=== PATIENT | male | born 1935 | race Caucasian/White ===

== ENCOUNTER → 2016-11-21 | Outpatient (CLI) | payer MEDICARE ==
[2016-11-21 09:41] LABS: ALT 25 U/L (21-72); AST 18 U/L (17-59); Alkaline Phosphatase 77 U/L (38-126); Anion Gap 10 mmol/L; Blood Urea Nitrogen 15 mg/dL (9-20); Calcium 9.2 mg/dL (8.4-10.2); Carbon Dioxide 24 mmol/L (22-30); Chloride 107 mmol/L (98-107); Cholesterol 137 mg/dL (<200); Glucose 135 mg/dL (74-99); HDL Cholesterol 27 mg/dL (40-60); Non-African American GFR(MDRD) >60 (>60 ml/min/1.73 sqM); Sodium 141 mmol/L (137-145); Total Bilirubin 1.5 mg/dL (0.2-1.3); Total Protein 6.6 g/dL (6.3-8.2); Triglycerides 128 mg/dL (<150)
[2016-11-21 12:56] LABS: Hemoglobin A1C 6.5 % (4.2-6.1)
== END ==
LOC: LABWHC1 08:49
PROVIDERS: ATTEND Internal Medicine
DX: E11.9 Type 2 diabetes mellitus without complications (principal); E78.5 Hyperlipidemia, unspecified
CPT/HCPCS: 36415; 80053; 80061; 83036

== ENCOUNTER → 2016-12-20 | Outpatient (CLI) | payer MEDICARE ==
[2016-12-20 12:59] LABS: ALT 23 U/L (21-72); AST 18 U/L (17-59); Alkaline Phosphatase 81 U/L (38-126); Anion Gap 9 mmol/L; Blood Urea Nitrogen 17 mg/dL (9-20); Calcium 9.3 mg/dL (8.4-10.2); Carbon Dioxide 27 mmol/L (22-30); Chloride 106 mmol/L (98-107); Cholesterol 143 mg/dL (<200); Glucose 108 mg/dL (74-99); HDL Cholesterol 28 mg/dL (40-60); Non-African American GFR(MDRD) >60 (>60 ml/min/1.73 sqM); Sodium 142 mmol/L (137-145); Total Bilirubin 1.4 mg/dL (0.2-1.3); Triglycerides 121 mg/dL (<150)
== END | disposition home or self-care (01) ==
LOC: LABWHC1 11:20
PROVIDERS: ATTEND Internal Medicine Interventional Cardiology
DX: E78.2 Mixed hyperlipidemia (principal)
CPT/HCPCS: 36415; 80053; 80061

== ENCOUNTER → 2017-03-18 | Outpatient (CLI) | payer MEDICARE ==
--- NOTE | 2017-03-18 12:24 | CT ---
EXAMINATION TYPE: CT brain wo con DATE OF EXAM: 03/18/2017 COMPARISON: CT brain with contrast dated 12/30/2013. HISTORY: Patient poor historian. Patient appears to have memory lapses. Alzheimers. CT DLP: 1103 mGycm. Automated Exposure Control for Dose Reduction was Utilized. TECHNIQUE: CT scan of the head is performed without contrast. FINDINGS: There is no acute intracranial hemorrhage, mass effect, or midline shift identified. Old lacunar injury is seen of the lewis radiata within the frontal lobe on the left. There is diffuse sy mmetric prominence of the ventricular system and peripheral sulci corresponding to age-related atroph y and accentuated by the history of Alzheimer's dementia. Scattered areas of hypoattenuation are seen within the periventricular and subcortical white matter relating to chronic microangiopathy. 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 The globes are intact and there is polypoid muco steve thickening of the posterior ethmoid and sphenoid sinuses, mild in degree and partially visualized . IMPRESSION: 1. No acute intracranial hemorrhage, mass effect, or midline shift is seen. 2. Symmetric atrophy, partially age related and partially related to the patient's history of Alzheim er's disease. 3. Partially visualized mild polypoid mucosal thickening of the sphenoid and ethmoid sinuses. 4. Nonspecific white matter changes, likely on the basis of chronic microangiopathy.
== END | disposition home or self-care (01) ==
LOC: RADCTMAIN 11:49
PROVIDERS: ATTEND Psychiatry & Neurology Neurology
DX: G30.9 Alzheimer's disease, unspecified (principal); F02.80 Dementia in other diseases classified elsewhere, unspecified severity, without behavioral disturbance, psychotic disturbance, mood disturbance, and anxiety; G31.9 Degenerative disease of nervous system, unspecified; R90.82 White matter disease, unspecified
CPT/HCPCS: 70450

== ENCOUNTER 2018-12-10 18:43 | Emergency (ER) | payer MEDICARE ==
--- NOTE | 2018-12-10 20:05 | ED ---
General Adult HPI - General Chief complaint: Altered Mental Status Stated complaint: Confused Time Seen by Provider: 12/10/18 19:52 Source: family Mode of arrival: ambulatory Limitations: no limitations - History of Present Illness Initial comments: Dictation was produced using [employer] dictation software. please excuse any grammatical, word or spelling errors. Chief Complaint: 83-year-old male past medical history dementia presents with abnormal behavior. History of Present Illness: 83-year-old male. He has multiple comorbidities. Patient is a history of dementia. He is brought in today for 2 weeks of bizarre behavior. Family specifically reports that patient has been wearing 3 shirts at a time and shortness over his pants. Patient does not usually exam dissected behavior. Has a history of dementia. Patient does have established care with neurologist Dr. Marcial. She instructed to bring patient to the emergency department for concerns of possible delirium. Patient otherwise has no complaints at this time. Family reports the patient is otherwise well-appearing and has had no complaints. Patient has not been compliant with his dementia medication. He was seen flushing his medications down the toilet. The ROS documented in this emergency department record has been reviewed and confirmed by me. Those systems with pertinent positive or negative responses have been documented in the HPI. All other systems are other negative and/or noncontributory. PHYSICAL EXAM: General Impression: Alert and oriented x2/4, not in acute distress HEENT: Normocephalic atraumatic, extra-ocular movements intact, pupils equal and reactive to light bilaterally, mucous membranes moist. Cardiovascular: Heart regular rate and rhythm, S1&S2 audible, no murmurs, rubs or gallops Chest: Lungs clear to auscultation bilaterally, no rhonchi, no wheeze, no rales Abdomen: Bowel sounds present, abdomen soft, non-tender, non-distended, no organomegaly Musculoskeletal: Pulses present and equal in all extremities, no peripheral edema Motor: no focal deficits noted Neurological: CN II-XII grossly intact, no focal motor or sensory deficits noted, no rigidity no clonus Skin: Intact with no visualized rashes ED course: 83-year-old pleasant male presents with abnormal behavior. He has a history of dementia. Vital signs upon arrival are within acceptable limits. Laboratory evaluation obtained. CBC unremarkable. Metabolic panel is unremarkable. Chest x-ray shows no acute processes. CT of the brain shows bas al ganglia bleed with extension into the intraventricular space. Discussed CT findings with radiologist. Patient to be transferred to [facility] for further intervention. Discussed patient case with Dr. Castano. Who is willing to accept the patient. He does request that we touch base with no endovascular for possible intervention. Patient's blood pressure was slightly elevated 154/93. Skin tone milligrams of labetalol. Medications were reviewed. Patient is not on any anticoagulation medications. - Related Data Home Medications Medication Instructions Recorded Confirmed Aspirin [[place] Aspirin EC] 81 mg PO DAILY 12/10/18 12/10/18 Donepezil HCl [Aricept] 10 mg PO DAILY 12/10/18 12/10/18 Latanoprost/Pf [Latanoprost 0.005% 1 drop LEFT EYE HS 12/10/18 12/10/18 Eye Drop] Losartan [Cozaar] 50 mg PO DAILY 12/10/18 12/10/18 Allergies Allergy/AdvReac Type Severity Reaction Status Date / Time lansoprazole [From Prevacid] Allergy Rash/Hives Verified 12/10/18 20:08 Review of Systems ROS Statement: Those systems with pertinent positive or pertinent negative responses have been documented in the HPI. ROS Other: All systems not noted in ROS Statement are negative. Past Medical History Past Medical History: Hyperlipidemia, Hypertension Additional Past Medical History / Comment(s): SEE DR CHOW'S HISTORY AND PHYSICAL History of Any Multi-Drug Resistant Organisms: None Reported Past Surgical History: No Surgical Hx Reported, Appendectomy, Heart Catheterization, Hernia Repair Additional Past Surgical History / Comment(s): pacemaker Past Anesthesia/Blood Transfusion Reactions: No Reported Reaction Type of Cardiac Device: Permanent Pacemaker Device Placement Date:: 12-17-2004 Past Psychological History: No Psychological Hx Reported Smoking Status: Former smoker General Exam Limitations: no limitations Course Vital Signs 12/10/18 12/10/18 19:17 21:04 Temperature 98.3 F 97.6 F Pulse Rate 69 73 Respiratory 20 16 Rate Blood Pressure 147/78 154/93 O2 Sat by Pulse 97 95 Oximetry Medical Decision Making - Lab Data Result diagrams: 12/10/18 21:00 12/10/18 21:00 Lab Results 12/10/18 12/10/18 12/10/18 Range/Units 21:00 21:00 21:00 WBC 6.7 (3.8-10.6) k/uL RBC 4.54 (4.30-5.90) m/uL Hgb 13.2 (13.0-17.5) gm/dL Hct 39.6 (39.0-53.0) % MCV 87.4 (80.0-100.0) fL MCH 29.1 (25.0-35.0) pg MCHC 33.3 (31.0-37.0) g/dL RDW 12.4 (11.5-15.5) % Plt Count 215 (150-450) k/uL Neutrophils % 65 % Lymphocytes % 20 % Monocytes % 9 % Eosinophils % 2 % Basophils % 0 % Neutrophils # 4.4 (1.3-7.7) k/uL Lymphocytes # 1.3 (1.0-4.8) k/uL Monocytes # 0.6 (0-1.0) k/uL Eosinophils # 0.2 (0-0.7) k/uL Basophils # 0.0 (0-0.2) k/uL Sodium 141 (137-145) mmol/L Potassium 4.0 (3.5-5.1) mmol/L Chloride 107 (98-107) mmol/L Carbon Dioxide 25 (22-30) mmol/L Anion Gap 9 mmol/L BUN 26 H (9-20) mg/dL Creatinine 1.15 (0.66-1.25) mg/dL Est GFR (CKD-EPI)AfAm 69 (>60 ml/min/1.73 sqM) Est GFR (CKD-EPI)NonAf 60 (>60 ml/min/1.73 sqM) Glucose 114 H (74-99) mg/dL Calcium 9.5 (8.4-10.2) mg/dL Magnesium 2.0 (1.6-2.3) mg/dL Total Bilirubin 1.4 H (0.2-1.3) mg/dL AST 15 L (17-59) U/L ALT 22 (21-72) U/L Alkaline Phosphatase 72 (38-126) U/L Ammonia <9 (<30) umol/L Total Protein 6.8 (6.3-8.2) g/dL Albumin 3.9 (3.5-5.0) g/dL Disposition Clinical Impression: Intracranial bleed Disposition: OTHER INSTITUTION NOT DEFINED Condition: Critical Referrals: Cameron Soto MD [Primary Care Provider] - 1-2 days Time of Disposition: 21:39 - Out of Hospital Transfer - Req. Specs Out of Hospital Transfer - Requested Specifics: Other Emergency Center (formerly [facility])
[2018-12-10 21:05] VITALS: RESP 16; TEMP 97.6
[2018-12-10 21:15] LABS: Basophils % (A) 0 %; Eosinophils # (A) 0.2 k/uL (0-0.7); Eosinophils % (A) 2 %; HCT 39.6 % (39.0-53.0); HGB 13.2 gm/dL (13.0-17.5); Lymphocytes # (A) 1.3 k/uL (1.0-4.8); Lymphocytes % (A) 20 %; MCH 29.1 pg (25.0-35.0); MCHC 33.3 g/dL (31.0-37.0); MCV 87.4 fL (80.0-100.0); Mean Platelet Volume 6.9; Monocytes # (A) 0.6 k/uL (0-1.0); Monocytes % (A) 9 %; Neutrophils # (A) 4.4 k/uL (1.3-7.7); Neutrophils % (A) 65 %; Platelet Count 215 k/uL (150-450); RBC 4.54 m/uL (4.30-5.90); RDW 12.4 % (11.5-15.5); WBC 6.7 k/uL (3.8-10.6)
[2018-12-10 21:24] LABS: Albumin 3.9 g/dL (3.5-5.0); Calcium 9.5 mg/dL (8.4-10.2); Total Bilirubin 1.4 mg/dL (0.2-1.3); Total Protein 6.8 g/dL (6.3-8.2)
[2018-12-10] MEDS ORDERED: LABETALOL SYRINGE 5 MG/ML IVP STA (21:27)
--- NOTE | 2018-12-10 21:34 | XR ---
EXAMINATION TYPE: XR chest 2V DATE OF EXAM: 12/10/2018 COMPARISON: 12/30/2013 HISTORY: Chest pain TECHNIQUE: Frontal and lateral views of the chest are obtained. FINDINGS: There is no heart failure nor confluent pneumonic infiltrate. Thoracic aorta is atheromato us. There is a left axillary pacemaker. IMPRESSION: No active cardiopulmonary disease. There is clearing of small subsegmental atelectasis l eft lung base compared to old exam.
--- NOTE | 2018-12-10 21:40 | CT ---
EXAMINATION TYPE: CT brain wo con DATE OF EXAM: 12/10/2018 COMPARISON: 12/30/2013 HISTORY: Altered mental status. CT DLP: 1126.4 mGycm Automated exposure control for dose reduction was used. FINDINGS: There is cerebral cortical atrophy. There is 3 x 1.5 cm area of hypoattenuation in the left lateral v entricle frontal horn. This is consistent with acute intraventricular hemorrhage. There is enlargemen t of the ventricles. There is no midline shift. There is patchy hypodensity in the periventricular wh ite matter. Calvarium is intact. IMPRESSION: CEREBRAL ATROPHY. ACUTE INTRACRANIAL VENTRICULAR HEMORRHAGE IN THE LEFT LATERAL VENTRICLE. CHRONIC SM ALL VESSEL ISCHEMIA. THIS EXAM WAS DISCUSSED WITH ER PHYSICIAN AT 9:40 PM.
[2018-12-10 22:18] VITALS: BP 151/89; PULSE 75
[2018-12-10 22:32] LABS: INR 1.1 (<1.2); Prothrombin Time 11.3 sec (9.0-12.0)
== END 2018-12-10 22:34 | disposition other institution (70) ==
LOC: EC 18:43
DX: I62.9 Nontraumatic intracranial hemorrhage, unspecified (principal); I10 Essential (primary) hypertension; F03.90 Unspecified dementia, unspecified severity, without behavioral disturbance, psychotic disturbance, mood disturbance, and anxiety; Z95.818 Presence of other cardiac implants and grafts; Z95.0 Presence of cardiac pacemaker; Z87.891 Personal history of nicotine dependence; Z79.82 Long term (current) use of aspirin; Z79.899 Other long term (current) drug therapy; Z88.8 Allergy status to other drugs, medicaments and biological substances
CPT/HCPCS: 36415; 70450; 71046; 80053; 82140; 83735; 84484; 85025; 85610; 93005; 96374; 99285